=== PATIENT | male | born 1985 | race Hispanic/Latino ===

== ENCOUNTER 2016-10-22 00:04 | Emergency (ER) | payer SELFPAY ==
[2016-10-22 01:13] VITALS: BP 130/76; PULSE 84; RESP 16; TEMP 98.3; O2SAT 98
[2016-10-22] MEDS: TDAP Vaccine 0.5 mL Syr IM ONE (02:01)
--- NOTE | 2016-10-22 02:04 | ED PDOC ---
Lower Extremity Pain/Injury Time Seen by Provider: 10/22/16 01:17 Chief Complaint (Nursing): Abnormal Skin Integrity Chief Complaint (Provider): left foot laceration History Per: Patient History/Exam Limitations: no limitations Onset/Duration Of Symptoms: Days (1 week) Current Symptoms Are (Timing): Still Present Additional History Per: Patient Additional Complaint(s): 31 y/o male presents for eval of laceration to left foot x 1 week. [place] on a sharp stick that cut the bottom of his foot; patient states he has been cleaning area and applying antibiotic ointment. [place] and after being there all weekend he noted redness and swelling to left great toe, which prompted ED visit. Denies fever, nausea/vomiting, drainage from site, limitation of movement. Last tetanus unknown. Past Medical History Reviewed: Historical Data, Nursing Documentation, Vital Signs Vital Signs: Last Vital Signs Temp 98.3 F 10/22/16 00:55 Pulse 84 10/22/16 00:55 Resp 16 10/22/16 00:55 BP 130/76 10/22/16 00:55 Pulse Ox 98 10/22/16 00:55 - Medical History PMH: No Chronic Diseases - Surgical History Surgical History: No Surg Hx - Family History Family History: States: Unknown Family Hx - Home Medications Home Medications: Ambulatory Orders Medication Instructions Recorded Cephalexin [cephalexin] 500 mg PO Q6 #39 cap 10/22/16 Ibuprofen [Motrin Tab] 1 tab PO Q6 PRN #20 tab 10/22/16 - Allergies Allergies/Adverse Reactions: Allergies Allergy/AdvReac Type Severity Reaction Status Date / Time No Known Allergies Allergy Verified 10/22/16 01:30 Review of Systems ROS Statement: Except As Marked, All Systems Reviewed And Found Negative Musculoskeletal: Positive for: Foot Pain (left great toe) Physical Exam - Reviewed Nursing Documentation Reviewed: Yes Vital Signs Reviewed: Yes - Physical Exam Appears: Positive for: Well, Non-toxic, No Acute Distress Head Exam: Positive for: ATRAUMATIC, NORMAL INSPECTION, NORMOCEPHALIC Pulses-Dorsalis Pedis (L): 2+ Pulses-Dorsalis Pedis (R): 2+ Pulses-Post. Tibialis (L): 2+ Pulses-Post. Tibialis (R): 2+ Extremity: Positive for: Normal ROM, Other (0.5cm puncture wound noted plantar left great toe proximal lateral aspect, with erythema/swelling extending dorsally. No drainage, FB noted) Neurologic/Psych: Positive for: Alert, Oriented. Negative for: Motor/Sensory Deficits - ECG O2 Sat by Pulse Oximetry: 98 - Other Rad xray left foot X-Ray: Viewed By Ar X-Ray Interpretation: no acute findings - Progress ED Course And Treament: xray, tetanus, keflex PO Wound irrigated with normal saline, bandaged, surgical shoe given. Patient educated on findings, discharged with rx Ibuprofen, Keflex. Advised follow up podiatry. Return to ED for worsening/concerning symptoms. Disposition - Clinical Impression Clinical Impression: Puncture wound, Cellulitis of great toe of left foot - Patient ED Disposition Is Patient to be Admitted: No Counseled Patient/Family Regarding: Studies Performed, Diagnosis, Need For Followup, Rx Given - Disposition Referrals: Jagdish Vazquez MD [Primary Care Provider] - Podiatry Clinic [Outside] Cruz Ramey DPM [Staff Provider] - Disposition: Routine/Home Disposition Time: 03:15 Condition: STABLE Prescriptions: Cephalexin [cephalexin] 500 mg PO Q6 #39 cap Ibuprofen [Motrin Tab] 1 tab PO Q6 PRN #20 tab PRN Reason: Pain, Moderate (4-7) Instructions: Puncture Wound (ED), Cellulitis (ED)
--- NOTE | 2016-10-22 13:28 | RAD ---
PROCEDURE: Left Foot Radiographs. HISTORY: oldpuncture wound plantar left great toe COMPARISON: None. FINDINGS: BONES: Normal. No fracture. JOINTS: Normal. SOFT TISSUES: Normal. OTHER FINDINGS: None. IMPRESSION: Normal left foot radiographs.
== END 2016-10-22 03:26 | disposition home or self-care (01) ==
LOC: H.ER 00:04
DX: L03.116 Cellulitis of left lower limb (principal); S91.332A Puncture wound without foreign body, left foot, initial encounter; W26.8XXA Contact with other sharp object(s), not elsewhere classified, initial encounter; Y92.89 Other specified places as the place of occurrence of the external cause